=== PATIENT | female | born 1935 ===

== ENCOUNTER 2018-07-12 15:41 | Outpatient (REF) | payer MEDICARE, SELFPAY ==
[2018-07-12 20:54] LABS: HCT 36.8 % (36.0-46.0); HGB 12.7 g/dL (12.0-15.5); Mean Corp. HGB Concentration 34.5 g/dL (32.0-36.0); Mean Corpuscular Hemoglobin 28.2 pg (27.0-33.0); Mean Corpuscular Volume 81.6 fL (80-95); Platelet Count 244 x1000/uL (130-400); RBC 4.51 m/cumm (4.00-5.20); RBC Distribution Width 14.1 % (11.7-14.6); White Blood Cell Count 2.54 k/cumm (4.4-10.8)
[2018-07-12 21:06] LABS: ALT 13 U/L (12-78); AST 18 U/L (15-37); Albumin 3.5 g/dL (3.4-5.0); Alkaline Phosphatase 128 U/L (46-116); Anion Gap 3.8 mmol/L (3-11); BUN 13 mg/dL (7-18); Bilirubin, Total 0.4 mg/dL (0.2-1.0); C-Reactive Protein 1.04 mg/dL (0.0-0.3); CO2 33.2 mmol/L (21.0-32.0); CREATININE 0.59 mg/dL (0.55-1.02); Calcium 8.7 mg/dL (8.5-10.1); Chloride 94 mmol/L (98-107); Glucose 99 mg/dL (70-100); Potassium 3.6 mmol/L (3.5-5.1); Sodium 131 mmol/L (136-145); Total Protein 7.7 g/dL (6.4-8.2)
[2018-07-12 21:31] LABS: Absolute Lymphocyte Count 1.63 k/cumm (1.2-3.4); Absolute Monocyte Count 0.46 k/cumm (0.11-0.7); Absolute Neutrophil Count 0.46 k/cumm (1.2-6.7); Atypical Lymphocytes % 2
[2018-07-12 21:32] LABS: Diff Comment Manual Differential; RBC Morphology Normal
[2018-07-12 21:56] LABS: ESR 29 MM/HR (0-30)
[2018-07-14 09:56] LABS: Rheumatoid Factor 89 IU/mL (<12.5)
== END 2018-07-12 15:42 ==
LOC: NCHCN 15:41
PROVIDERS: PCP Family Medicine; Visit Provider Family Medicine
DX: I10 Essential (primary) hypertension (principal); R63.6 Underweight; M19.90 Unspecified osteoarthritis, unspecified site
CPT/HCPCS: 80053; 85652; 85025; 86140; 86431

== ENCOUNTER 2018-08-10 15:26 | Outpatient (REF) | payer MEDICARE, SELFPAY ==
[2018-08-10 21:48] LABS: Absolute Eosinophil Count 0.02 k/cumm (0.0-0.7); HCT 39.3 % (36.0-46.0); HGB 12.8 g/dL (12.0-15.5); Mean Corp. HGB Concentration 32.6 g/dL (32.0-36.0); Mean Corpuscular Hemoglobin 27.8 pg (27.0-33.0); Mean Corpuscular Volume 85.4 fL (80-95); Mean Platelet Volume 9.3 fL (8.0-11.0); Platelet Count 201 x1000/uL (130-400); RBC Distribution Width 14.7 % (11.7-14.6)
[2018-08-10 22:00] LABS: ALT 24 U/L (12-78); AST 23 U/L (15-37); Albumin 3.5 g/dL (3.4-5.0); Alkaline Phosphatase 80 U/L (46-116); Anion Gap 5.6 mmol/L (3-11); BUN 14 mg/dL (7-18); Bilirubin, Total 0.5 mg/dL (0.2-1.0); CO2 32.4 mmol/L (21.0-32.0); CREATININE 0.58 mg/dL (0.55-1.02); Calcium 8.5 mg/dL (8.5-10.1); Chloride 102 mmol/L (98-107); Glucose 94 mg/dL (70-100); Potassium 4.2 mmol/L (3.5-5.1); Sodium 140 mmol/L (136-145); Total Protein 7.5 g/dL (6.4-8.2)
[2018-08-10 22:30] LABS: White Blood Cell Count 1.89 k/cumm (4.4-10.8)
[2018-08-10 22:32] LABS: Absolute Lymphocyte Count 1.25 k/cumm (1.2-3.4); Absolute Monocyte Count 0.25 k/cumm (0.11-0.7); Atypical Lymphocytes % 7
[2018-08-11 15:19] LABS: Absolute Neutrophil Count 0.38 k/cumm (1.2-6.7)
[2018-08-12 11:36] LABS: HBs Antibody, Quant <3.1 mIU/mL; Hepatitis B Surface Ab Negative
[2018-08-12 12:25] LABS: Hepatitis C Ab w Rflx HCV PCR Negative (NEGAT)
== END 2018-08-10 15:46 ==
LOC: NCHCN 15:26
PROVIDERS: PCP Family Medicine; Referring Provider Family Medicine; Visit Provider Family Medicine
DX: M06.9 Rheumatoid arthritis, unspecified (principal); D70.9 Neutropenia, unspecified; Z11.59 Encounter for screening for other viral diseases
CPT/HCPCS: 80053; 86706; 86803; 85025

== ENCOUNTER 2019-12-19 22:45 | Outpatient (REF) | payer MEDICARE, MEDICAID, SELFPAY ==
[2019-12-19 22:03] LABS: Absolute Basophil Count 0.01 k/cumm (0.0-0.2); Absolute Eosinophil Count 0.01 k/cumm (0.0-0.7); Basophils % 0.5; Eosinophils % 0.5; HCT 41.2 % (36.0-46.0); HGB 13.3 g/dL (12.0-15.5); Mean Corp. HGB Concentration 32.3 g/dL (32.0-36.0); Mean Corpuscular Hemoglobin 28.9 pg (27.0-33.0); Mean Corpuscular Volume 89.6 fL (80-95); Platelet Count 250 x1000/uL (130-400); RBC Distribution Width 18.2 % (11.7-14.6)
[2019-12-19 22:23] LABS: ALT 16 U/L (14-59); AST 19 U/L (15-37); Albumin 3.1 g/dL (3.4-5.0); Alkaline Phosphatase 84 U/L (46-116); Anion Gap 5.9 mmol/L (3-11); BUN 20 mg/dL (7-18); Bilirubin, Total 0.3 mg/dL (0.2-1.0); C-Reactive Protein 0.83 mg/dL (0.0-0.3); CO2 32.1 mmol/L (21.0-32.0); CREATININE 0.59 mg/dL (0.55-1.02); Calcium 8.2 mg/dL (8.5-10.1); Chloride 101 mmol/L (98-107); Glucose 157 mg/dL (74-106); Potassium 3.7 mmol/L (3.5-5.1); Sodium 139 mmol/L (136-145)
[2019-12-19 22:43] LABS: Absolute Lymphocyte Count 1.67 k/cumm (1.2-3.4); Absolute Monocyte Count 0.13 k/cumm (0.11-0.7); Atypical Lymphocytes % 28; Diff Comment Manual Differential
[2019-12-19 22:44] LABS: Anisocytosis 1+
== END 2019-12-19 23:05 ==
LOC: NCHCN 22:45
PROVIDERS: PCP Family Medicine; Visit Provider Family Medicine
DX: M06.9 Rheumatoid arthritis, unspecified (principal); D70.9 Neutropenia, unspecified; R63.6 Underweight; L89.159 Pressure ulcer of sacral region, unspecified stage
CPT/HCPCS: 80053; 85025; 86140